=== PATIENT | male | born 1950 | race Caucasian/White ===

== ENCOUNTER 2018-10-26 13:36 | Emergency (ER) | payer MEDICARE ==
[~2018-10-26] VITALS: Ht 170.2 cm; Wt 78.5 kg
[2018-10-26] MEDS ORDERED: SYNTHROID125 MC1 PO (13:49)
[2018-10-26] MEDS ORDERED: PRILOSEC 10MG C10 MG PO (13:49)
[2018-10-26] MEDS ORDERED: FLEXERIL PO (16:03)
[2018-10-26] MEDS ORDERED: IBUPROFEN 800800 M1 PO (16:03)
[2018-10-26 16:28] VITALS: BP 144/54
== END 2018-10-26 16:21 | disposition home or self-care (01) ==
LOC: M.ERS 13:36
DX: S39.012A Strain of muscle, fascia and tendon of lower back, initial encounter (principal); S40.011A Contusion of right shoulder, initial encounter; S70.01XA Contusion of right hip, initial encounter; E03.9 Hypothyroidism, unspecified; Z98.52 Vasectomy status; W17.89XA Other fall from one level to another, initial encounter; Y93.89 Activity, other specified; Y92.89 Other specified places as the place of occurrence of the external cause; Y99.8 Other external cause status